=== PATIENT | male | born 2000 | race Caucasian/White ===

== ENCOUNTER 2018-07-07 21:36 | Emergency (ER) | payer BC, OTHER ==
--- NOTE | 2018-07-07 21:49 | EDM.PDOC ---
ED HPI GENERAL MEDICAL PROBLEM - General Chief Complaint: Abdominal Pain Stated Complaint: SORE TO ABDOMEN WITH DRAINAGE Time Seen by Provider: 07/07/18 21:48 Source of Information: Reports: Patient History Limitations: Reports: No Limitations - History of Present Illness INITIAL COMMENTS - FREE TEXT/NARRATIVE: HISTORY AND PHYSICAL: History of present illness: 17-year-old male presenting emergency department chief complaint of lower abdominal skin infection starting 4 days ago. Patient states that on approximately 4 days ago he noticed a small red raised lesion in his left lower quadrant. Initially thought it was a "pimple" however since then the redness and swelling has increased. States that it has also become painful. Currently 04/16. Today he states that it "broke open" and drained yellowish white fluid. He denies any previous history of cellulitis or abscess. Denies any fever, chills, nausea, vomiting, diarrhea, or other signs of systemic infection. He is generally healthy and takes no normal medications. He sees Dr. Wiggins as his primary care provider. There is a raised erythematous oval-shaped lesion in the left lower quadrant. It is proximally 4 cm x 2 cm. There is some surrounding erythema with central ulceration. Areas tender to palpation with surrounding induration. Review of systems: As per history of present illness and below otherwise all systems reviewed and negative. Past medical history: As per history of present illness and as reviewed below otherwise noncontributory. Surgical history: As per history of present illness and as reviewed below otherwise noncontributory. Social history: No reported history of drug or alcohol abuse. Family history: As per history of present illness and as reviewed below otherwise noncontributory. Physical exam: See above H&P HEENT: Atraumatic, normocephalic, pupils reactive, negative for conjunctival pallor or scleral icterus, mucous membranes moist, throat clear, neck supple, nontender, trachea midline. Lungs: Clear to auscultation, breath sounds equal bilaterally, chest nontender. Heart: S1S2, regular, negative for clicks, rubs, or JVD. Abdomen: Soft, nondistended, nontender. Negative for masses or hepatosplenomegaly. Negative for costovertebral tenderness. Pelvis: Stable nontender. Genitourinary: Deferred. Rectal: Deferred. Extremities: Atraumatic, negative for cords or calf pain. Neurovascular unremarkable. Neuro: Awake, alert, oriented. Cranial nerves II through XII unremarkable. Cerebellum unremarkable. Motor and sensory unremarkable throughout. Exam nonfocal. Diagnostics: [] Therapeutics: Toradol 60 mg IM 1 Lidocaine 1% I&D Impression: Cellulitis with abscess abdomen Plan: Using 1% lidocaine area of interest was anesthetized successfully. Using 11 blade a 1 cm horizontal incision was made. I was only able to exclude a small amount of purulent material. We did send for culture. Patient tolerated procedure well. He was discharged with a prescription for Bactrim DS 7 days and instructions to follow-up with his primary care provider Dr. Wiggins. He should return to emergency department if any new or worsening symptoms. Definitive disposition and diagnosis as appropriate pending reevaluation and review of above. lowe abdomen Pain Score (Numeric/FACES): 7 - Related Data Allergies Allergy/AdvReac Type Severity Reaction Status Date / Time codeine Allergy Itching Verified 07/07/18 21:59 Home Meds: Home Meds . [No Known Home Meds] 07/07/18 [History] ED ROS GENERAL - Review of Systems Review Of Systems: ROS reveals no pertinent complaints other than HPI. ED EXAM, GENERAL - Physical Exam Exam: See Below Course - Vital Signs Last Recorded V/S: Last Vital Signs Temp 98.8 F 07/07/18 21:36 Pulse 74 07/07/18 21:36 Resp 18 07/07/18 21:36 BP 110/65 07/07/18 21:36 Pulse Ox 100 07/07/18 21:36 - Orders/Labs/Meds Meds: Medications Discontinued Medications Generic Name Dose Route Start Last Admin Trade Name True PRN Reason Stop Dose Admin Ketorolac Tromethamine 60 mg 07/07/18 22:05 07/07/18 22:13 Toradol IM 07/07/18 22:06 60 mg ONETIME ONE Administration Lidocaine HCl 5 ml 07/07/18 22:05 07/07/18 22:13 Xylocaine-Mpf 1% INJECT 07/07/18 22:06 5 ml ONETIME ONE Administration Departure - Departure Time of Disposition: 22:49 Disposition: Home, Self-Care 01 Condition: Good Clinical Impression: Cellulitis and abscess of trunk - Discharge Information Referrals: Fredrick Wiggins MD [Primary Care Provider] - Forms: ED Department Discharge Additional Instructions: My general discharge The following information is given to patients seen in the emergency department who are being discharged to home. This information is to outline your options for follow-up care. We provide all patients seen in our emergency department with a follow-up referral. The need for follow-up, as well as the timing and circumstances, are variable depending upon the specifics of your emergency department visit. If you don't have a primary care physician on staff, we will provide you with a referral. We always advise you to contact your personal physician following an emergency department visit to inform them of the circumstance of the visit and for follow-up with them and/or the need for any referrals to a consulting specialist. The emergency department will also refer you to a specialist when appropriate. This referral assures that you have the opportunity for follow-up care with a specialist. All of these measure are taken in an effort to provide you with optimal care, which includes your follow-up. Under all circumstances we always encourage you to contact your private physician who remains a resource for coordinating your care. When calling for follow-up care, please make the office aware that this follow-up is from your recent emergency room visit. If for any reason you are refused follow-up, please contact the [facility] Emergency Department at and asked to speak to the emergency department charge nurse. [facility] [address] [place] [id number] Please call on Sunday and follow-up with your primary care provider as we discussed. Be sure to telemeter were seen in the emergency department and they wish for you to be seen as soon as possible. Take medication as prescribed. Return emergency department if any new or worsening symptoms.
[2018-07-07] MEDS ORDERED: Ketorolac 60 MG/2 ML SDV IM ONE (22:05)
[2018-07-07 23:16] VITALS: BP 118/71
== END 2018-07-07 23:10 | disposition home or self-care (01) ==
LOC: MW.ED 21:36 → EEVIPCON 21:36 → MW.ED 23:10
DX: L02.211 Cutaneous abscess of abdominal wall (principal); L03.311 Cellulitis of abdominal wall; Z88.5 Allergy status to narcotic agent
CPT/HCPCS: 10060; 87070; 87077; 87186; 96372; 99283; J1885